=== PATIENT | female | born 1950 | race African-American/Black ===

== ENCOUNTER 2016-06-25 13:09 | Emergency (ER) | payer OTHER ==
[~2016-06-25] VITALS: Ht 165.1 cm; Wt 120.0 kg
[2016-06-25] MEDS ORDERED: METHYLPREDNISOLONE SOD SUCC 125 MG/2 ML VIAL IV STA (14:04)
[2016-06-25] MEDS ORDERED: IPRATROPIUM BROMIDE (0.02%) 0.5MG/2.5ML NEB HHN STA (14:04)
[2016-06-25] MEDS ORDERED: SODIUM CHLORIDE 0.9% 1,000 ML IV ONE (14:04)
[2016-06-25] MEDS ORDERED: ALBUTEROL (0.083%) 2.5MG/3ML NEB HHN STA (14:04)
[2016-06-25] MEDS ORDERED: DIPHENHYDRAMINE 50MG/ML VIAL IV ONE (14:15)
[2016-06-25] MEDS ORDERED: ONDANSETRON HCL 4MG/2ML VIAL IV ONE ×3 (14:30→17:15)
[2016-06-25] MEDS ORDERED: MORPHINE SULFATE 4 MG/ML CPJ (NOT FOR IM USE) IV ONE (14:30)
[2016-06-25] MEDS ORDERED: SODIUM CHLORIDE 0.9% 10ML VIAL ONE (14:47)
[2016-06-25] MEDS ORDERED: IOHEXOL-350 100 ML BOTTLE ONE (14:47)
[2016-06-25 14:50] LABS: BASOPHILS % 0.3 % (0.0-2.0); EOSINOPHILS % 0.6 % (0.0-5.0); HEMOGLOBIN. 13.7 g/dL (12.0-16.0); LYMPHOCYTES % 12.5 % (20.0-50.0); MEAN CORPUSCULAR HEMOGLOBIN 29.5 pg (28.0-32.0); MEAN CORPUSCULAR HGB CONC 32.6 g/dL (31.0-37.0); MEAN CORPUSCULAR VOLUME 90.5 fL (81.0-99.0); MEAN PLATELET VOLUME 7.1 fl (7.4-10.4); MONOCYTES % 6.3 % (2.0-8.0); NEUTROPHILS % 80.3 % (40.0-76.0); PLATELET 231 x1000/uL (130-400); RED BLOOD CELL COUNT 4.65 mill/uL (4.2-5.4); RED CELL DISTRIBUTION WIDTH 14.3 % (11.6-14.6); WHITE BLOOD COUNT 24.5 x1000/uL (4.5-11.0)
[2016-06-25 14:59] LABS: ALBUMIN 3.6 g/dL (3.4-5.0); ANION GAP 14; CALCIUM 8.9 mg/dL (8.5-10.1); CARBON DIOXIDE 25 mEq/L (21-32); CHLORIDE 110 mEq/L (98-107); INDEX HEMOLYSI 2 (1-3); INDEX ICTERIC 1 (1-4); INDEX LIPEMIC 1 (1-3)
[2016-06-25 15:01] LABS: INR 1.2; PARTIAL THROMBOPLASTIN TIME 26.2 sec (24.0-34.0); PROTHROMBIN TIME 12.7 sec
[2016-06-25 15:02] LABS: BG BASE EXCESS -1.8 mmol/L (-2.0-2.0); BG CARBOXYHEMOGLOBIN 0.7 % (0.5-1.5); BG DEOXYHEMOGLOBIN 3.2 % (0.0-5.0); BG FRACTION INSPIRED OXYGEN 36; BG HCO3 ACT 22.9 mmol/L (22.0-26.0); BG METHEMOGLOBIN 0.2 % (0.0-1.5); BG OXYGEN SATURATION 96.8 % (92.0-98.5); BG OXYHEMOGLOBIN 95.9 % (94.0-97.0); BG PCO2 38.8 mmHg (35.0-45.0); BG PH 7.388 (7.350-7.450); BG PO2 90.1 mmHg (75.0-100.0); BG SAMPLE SITE LEFT RADIAL; BG TOTAL HEMOGLOBIN 14.5 g/dL (12.0-18.0); BG VENT MODE NASAL CANNULA
[2016-06-25 15:07] LABS: ALANINE AMINOTRANSFERASE 25 IU/L (13-61); CREATINE KINASE 178 IU/L (26-192); NT PRO B-TYPE NATRIURETIC PEP 43 pg/mL (5-125); TROPONIN I 0.03 ng/mL (0.00-0.04); UREA NITROGEN BLOOD 21 mg/dL (7-21); eGFR > 60 mL/min (>60)
[2016-06-25] MEDS ORDERED: ESMOLOL 2500MG PREMIX 250 ML IV ONE (16:15)
[2016-06-25] MEDS ORDERED: ESMOLOL 2500MG PREMIX 250 ML IV NR (16:15)
[2016-06-25 17:29] VITALS: BP 147/91
== END 2016-06-25 17:48 | disposition short-term general hospital (02) ==
LOC: ER 13:22
DX: I71.00 Dissection of unspecified site of aorta (principal); R06.02 Shortness of breath; I10 Essential (primary) hypertension; I48.91 Unspecified atrial fibrillation; J44.9 Chronic obstructive pulmonary disease, unspecified; J45.909 Unspecified asthma, uncomplicated; K42.9 Umbilical hernia without obstruction or gangrene; M54.9 Dorsalgia, unspecified; R05 Cough
CPT/HCPCS: 36415; 36600; 51702; 71010; 71275; 74174; 80053; 82375; 82550; 82805; 83605; 83880; 84484; 85025; 85610; 85730; 87040; 93005; 94640; 96361; 96374; 96375; 96376; 99291; A4216; J1200; J2270; J2405; J2930; J3490; J7030; J7611; Q9967; Z7610; A4315

== ENCOUNTER 2017-03-20 08:38 | Emergency (ER) | payer OTHER ==
[~2017-03-20] VITALS: Ht 154.9 cm; Wt 77.0 kg
[2017-03-20 11:15] LABS: CLARITY URINE CLEAR (CLEAR); COLOR URINE DARK YELLOW (YELLOW); KETONES URINE TRACE (NEGATIVE); LEUKOCYTE ESTERASE URINE TRACE (NEGATIVE); NITRITE URINE NEGATIVE (NEGATIVE); OCCULT BLOOD URINE NEGATIVE (NEGATIVE); PH URINE 5.5 (4.5-8.0); PROTEIN URINE 1+ (NEGATIVE); SPECIFIC GRAVITY URINE 1.024 (1.005-1.030)
[2017-03-20 11:26] LABS: BASOPHILS % 0.8 % (0.0-2.0); EOSINOPHILS % 4.4 % (0.0-5.0); HEMOGLOBIN. 9.2 g/dL (12.0-16.0); MEAN CORPUSCULAR VOLUME 84.9 fL (81.0-99.0); MEAN PLATELET VOLUME 7.4 fl (7.4-10.4); MONOCYTES % 7.3 % (2.0-8.0); NEUTROPHILS % 72.5 % (40.0-76.0); RED BLOOD CELL COUNT 3.29 mill/uL (4.2-5.4); RED CELL DISTRIBUTION WIDTH 16.2 % (11.6-14.6)
[2017-03-20 11:28] LABS: CHLORIDE 104 mEq/L (98-107)
[2017-03-20 11:30] LABS: INR 1.2; PROTHROMBIN TIME 12.7 sec (9.4-11.6)
[2017-03-20 11:40] LABS: CARBON DIOXIDE 24 mEq/L (21-32)
[2017-03-20 12:10] LABS: PLATELET 379 x1000/uL (130-400)
[2017-03-20] MEDS ORDERED: ESMOLOL 2500MG PREMIX 250 ML IV ONE (14:15)
[2017-03-20] MEDS ORDERED: IOHEXOL-350 100 ML BOTTLE ONE (15:17)
[2017-03-20 16:03] VITALS: BP 156/80
== END 2017-03-20 16:05 | disposition home or self-care (01) ==
LOC: ER 08:38
DX: K59.00 Constipation, unspecified (principal); N39.0 Urinary tract infection, site not specified; I71.02 Dissection of abdominal aorta; I10 Essential (primary) hypertension; E78.00 Pure hypercholesterolemia, unspecified; Z95.5 Presence of coronary angioplasty implant and graft; Z98.890 Other specified postprocedural states; Z91.013 Allergy to seafood
CPT/HCPCS: 36415; 71275; 74174; 80053; 81001; 83690; 85025; 85610; 87086; 99285; J3490; Q9967; Z7610